=== PATIENT | male | born 1960 | race Caucasian/White ===

== ENCOUNTER 2022-04-29 14:29 | Emergency (ER) | payer BC ==
[~2022-04-29] VITALS: Ht 177.8 cm; Wt 79.8 kg
[2022-04-29 15:05] LABS: MEAN CORPUSCULAR HEMOGLOBIN 30.9 uug (23.8-33.4); MEAN CORPUSCULAR VOLUME 91.9 fL (73.0-96.2); PLATELET COUNT (AUTO) 143 K/uL (152-348)
[2022-04-29 15:14] LABS: CARBON DIOXIDE 29 mmol/L (21-32); CHLORIDE 106 mmol/L (98-107); GLUCOSE 161 mg/dL (74-106); POTASSIUM 4.1 mmol/L (3.5-5.1); UREA NITROGEN, BLOOD 17 mg/dL (7-18)
[2022-04-29] MEDS ORDERED: ASPIRIN 81 MG TAB.CHEW ONE (15:25)
[2022-04-29] MEDS: ASPIRIN 81 MG TAB.CHEW PO ONE ×2 (15:26→15:31)
[2022-04-29] MEDS ORDERED: ASPIRIN 81 MG TAB.CHEW PO ONE (15:30)
--- NOTE | 2022-04-29 15:31 | NUR ---
Per Dr. Fernández to only give one 81 mg aspirin tablet since patient took 81 mg at home in the morning.
[2022-04-29] MEDS ORDERED: ATOR40TA PO (16:12)
[2022-04-29] MEDS ORDERED: CARV12.52 PO (16:12)
[2022-04-29] MEDS ORDERED: ASPI81TA31 PO (16:12)
[2022-04-29] MEDS ORDERED: TICAGRELOR PO (16:12)
[2022-04-29] MEDS ORDERED: MECL-159 PO (16:53)
[2022-04-29 18:26] VITALS: BP 120/73
--- NOTE | 2022-04-29 18:26 | NUR ---
Patient discharged to home in stable condition. Written and verbal after care instructions given. Patient verbalizes understanding of instructions. Instructed not to drive. Stressed follow up or return to ER for worsening s/s.
== END 2022-04-29 18:27 | disposition home or self-care (01) ==
LOC: ER 14:29
DX: R42 Dizziness and giddiness (principal); R07.89 Other chest pain; R94.31 Abnormal electrocardiogram [ECG] [EKG]; I25.2 Old myocardial infarction; Z95.5 Presence of coronary angioplasty implant and graft; I10 Essential (primary) hypertension; E78.5 Hyperlipidemia, unspecified; I25.10 Atherosclerotic heart disease of native coronary artery without angina pectoris; Z79.82 Long term (current) use of aspirin; Z79.01 Long term (current) use of anticoagulants
CPT/HCPCS: 36415; 71045; 84484; 85025; 93005; A4663